=== PATIENT | female | born 1950 | race Caucasian/White ===

== ENCOUNTER → 2019-07-17 09:13 | Outpatient (CLI) | payer MEDICARE, OTHER, SELFPAY ==
--- NOTE | 2019-07-17 09:22 | DI.RAD.S_ITS ---
PROCEDURE: XR LUMBAR SPINE MIN 4V INDICATIONS: Low back pain with right lower extremity symptoms TECHNIQUE: 5 views of the lumbar spine were acquired. COMPARISON: None. FINDINGS: Bones: 5 nonrib-bearing vertebrae are present. There is normal bony alignment. No acute vertebral body compression fractures. No suspicious bony lesions. Moderate multilevel lumbar spondylosis throughout the imaged spine with mid and lower lumbar facet arthropathy. Soft tissues: Overlying bowel gas pattern is normal. No suspicious soft tissue calcifications. Vascular calcifications are present. Oblique images: No pars defects. IMPRESSION: Lumbar spine without acute radiographic abnormalities. Moderate multilevel lumbar spondylosis. Dictated by: Danilo Mckay M.D. on 07/17/2019 at 10:34 Approved by: Danilo Mckay M.D. on 07/17/2019 at 10:35
== END ==
PROVIDERS: PCP Family Medicine; Visit Provider Physical Medicine & Rehabilitation
DX: M47.27 Other spondylosis with radiculopathy, lumbosacral region (principal)
CPT/HCPCS: 72110; 99214

== ENCOUNTER → 2020-09-01 18:50 | Outpatient (ROUT) | payer MEDICARE, OTHER, SELFPAY ==
[2020-09-01 19:22] LABS: Add Manual Diff / Slide Review NO; Basophils Absolute Auto 100 /uL (0-100); Basophils Percent Auto 0.9 % (0-2); Eosinophils Absolute Auto 200 /uL (0-450); Eosinophils Percent Auto 1.8 % (2-4); Hematocrit 42.9 % (36-46); Hemoglobin 14.4 g/dL (12.0-16.0); Lymphocytes Absolute Auto 2800 /uL (1100-4500); Mean Corpuscular HGB Conc 33.6 % (30-36); Mean Corpuscular Hemoglobin 31.9 PG (26-34); Mean Corpuscular Volume 94.8 fL (80-100); Monocytes Absolute Auto 700 /uL (0-900); Neutrophils Absolute Auto 5800 /uL (1500-7000); Neutrophils Percent Auto 61.3 % (50-75); Platelet Count 212 X10^3/uL (150-400); Red Blood Cell Count 4.52 X10^6/uL (4.0-5.2); Red Cell Distribution Width 13.5 % (11.6-14.8); White Blood Cell Count 9.5 X10^3/uL (4.5-11.0)
[2020-09-01 19:33] LABS: Hemoglobin A1C% w Est Avg Glu 5.5 % (4.0-6.0)
[2020-09-01 19:36] LABS: Alanine Aminotransferase 24 IU/L (<35); Albumin 4.3 g/dL (3.5-5.0); Albumin Globulin Ratio 1.4 (1.0-2.8); Alkaline Phosphatase 94 U/L (38-126); Aspartate Aminotransferase 29 IU/L (14-36); BUN Creatinine Ratio 16.7 (6-22); Bilirubin Total 0.7 mg/dL (0.2-1.3); Blood Urea Nitrogen 13 mg/dL (7-17); Calcium 10.5 mg/dL (8.4-10.2); Carbon Dioxide 33 mmol/L (22-32); Chloride 99 mmol/L (98-107); Cholesterol 173 mg/dL (140-199); Estimated Glomerular Filt Rate > 60.0 mL/min (>60); Glucose 88 mg/dL (80-110); HDL Cholesterol 80 mg/dL (40-60); HEMOLYSIS < 15 (0-50); LDL Cholesterol Calculated 69 mg/dL (<100); Potassium 4.3 mmol/L (3.4-5.1); Sodium 135 mmol/L (137-145); Total Protein 7.3 g/dL (6.3-8.2); Triglycerides 122 mg/dL (35-150)
== END ==
PROVIDERS: PCP Internal Medicine; Visit Provider Internal Medicine
DX: R39.9 Unspecified symptoms and signs involving the genitourinary system (principal); K57.92 Diverticulitis of intestine, part unspecified, without perforation or abscess without bleeding; E78.2 Mixed hyperlipidemia; R73.01 Impaired fasting glucose
CPT/HCPCS: 80053; 80061; 83036; 85025; 87077; 87086; 87186

== ENCOUNTER → 2021-09-22 10:00 | Outpatient (CLI) | payer MEDICARE, OTHER, SELFPAY ==
[2021-09-22 11:18] LABS: Blood Urea Nitrogen 15 mg/dL (7-17); Calcium 9.4 mg/dL (8.4-10.2); Carbon Dioxide 29 mmol/L (22-32); Chloride 102 mmol/L (98-107); Estimated Glomerular Filt Rate > 60.0 mL/min (>60); Glucose 92 mg/dL (80-110); HEMOLYSIS < 15 (0-50); Sodium 137 mmol/L (137-145)
== END ==
PROVIDERS: PCP Internal Medicine; Referring Provider Specialist; Visit Provider Specialist
DX: N28.89 Other specified disorders of kidney and ureter (principal); D20.1 Benign neoplasm of soft tissue of peritoneum; D20.0 Benign neoplasm of soft tissue of retroperitoneum
CPT/HCPCS: 36415; 80048; 81002; 99214

== ENCOUNTER → 2021-10-13 10:22 | Outpatient (CLI) | payer MEDICARE, OTHER, SELFPAY ==
[2021-10-13 13:00] LABS: BUN Creatinine Ratio 18.3 (6-22); Blood Urea Nitrogen 15 mg/dL (7-17); Calcium 9.8 mg/dL (8.4-10.2); Carbon Dioxide 29 mmol/L (22-32); Chloride 102 mmol/L (98-107); Estimated Glomerular Filt Rate > 60.0 mL/min (>60); Glucose 94 mg/dL (80-110); HEMOLYSIS < 15 (0-50); Potassium 4.7 mmol/L (3.4-5.1); Sodium 137 mmol/L (137-145)
== END ==
PROVIDERS: PCP Internal Medicine; Referring Provider Specialist; Visit Provider Specialist
DX: Z01.812 Encounter for preprocedural laboratory examination (principal)
CPT/HCPCS: 36415; 80048

== ENCOUNTER → 2021-10-15 08:54 | Outpatient (CLI) | payer MEDICARE, OTHER, SELFPAY ==
--- NOTE | 2021-10-15 08:58 | DI.CT.S_ITS ---
PROCEDURE: CT ABDOMEN PELVIS W CON INDICATIONS: Bening neoplasm of retroperitineum TECHNIQUE: After the administration of oral and IV contrast, axial sections were acquired from the lung bases to the pubic symphysis. Coronal and sagittal reformats were performed. For radiation dose reduction, the following was used: automated exposure control, adjustment of mA and/or kV according to patient size. COMPARISON: [facility], CT, CT ABD W CON, 06/05/2017, 8:12. [facility], CT, ABD/PELVIS W/CON (PNL), 01/31/2012, 8:54. [facility], CT, CT ABD PELVIS W CON, 05/11/2015, 11:21. FINDINGS: Image quality: Excellent. Lung bases: Unremarkable. Heart: No significant findings. ABDOMEN: Liver: A benign low-density cyst is seen in the inferior right hepatic lobe, which measures 1.9 x 1.7 cm in axial dimensions and has mildly increased in size when compared to the prior exam. Gallbladder: Unremarkable. Biliary ducts: Unremarkable. Pancreas: Unremarkable. Spleen: Unremarkable. Adrenal Glands: Unremarkable. Kidneys and Ureters: An exophytic cyst at the inferior pole of the left kidney has mildly increased in size. No solid renal mass is identified. Stomach and Bowel: Multiple diverticula are seen in the colon without signs of acute diverticulitis. Normal appendix. Small bowel is unremarkable. Peritoneum: No abnormal intraperitoneal fluid. No free air. Ventral Wall: No hernia. Abdominal Nodes: Intermediate density right retroperitoneal mass again seen in the retrocaval region extending inferiorly, again seen to be surrounding the right renal artery. The lesion is unchanged in size or extent when compared to multiple prior exams dating back to 01/31/2012. No retroperitoneal or mesenteric adenopathy by size criteria. Vessels: Aorta and inferior vena cava are normal in size. PELVIS: Pelvic Organs: Unremarkable. Bladder: Unremarkable. Pelvic Nodes: No enlarged lymph nodes. Miscellaneous: No inguinal hernias are seen. Bones: Mild degenerative changes are seen in the spine. 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 Dictated by: Chico Figueroa M.D. on 10/15/2021 at 10:14 Approved by: Chico Figueroa M.D. on 10/15/2021 at 10:27
== END ==
PROVIDERS: PCP Student in an Organized Health Care Education/Training Program; Referring Provider Specialist; Visit Provider Specialist
DX: D20.0 Benign neoplasm of soft tissue of retroperitoneum (principal); D20.1 Benign neoplasm of soft tissue of peritoneum; K57.90 Diverticulosis of intestine, part unspecified, without perforation or abscess without bleeding
CPT/HCPCS: 74177

== ENCOUNTER → 2021-12-02 15:15 | Outpatient (CLI) | payer MEDICARE, OTHER, SELFPAY ==
--- NOTE | 2021-12-02 | DI.RAD.S_ITS ---
PROCEDURE: XR LUMBAR SPINE 2-3V INDICATIONS: Radiculopathy, site unspecified, right sided sciata TECHNIQUE: 3 views of the lumbar spine were acquired. COMPARISON: [facility], CR, XR LUMBAR SPINE MIN 4V, 07/17/2019, 9:27. FINDINGS: Bones: There are multilevel degenerative changes with anterior osteophytes at multiple levels and facet arthrosis in the lumbar spine. No vertebral body height loss. Mild disc space narrowing at L1-2 and L2-3 consistent with disc disease. The sacroiliac joints are normal. Soft tissues: Overlying bowel gas pattern is normal. No suspicious soft tissue calcifications. IMPRESSION: Multilevel degenerative changes of the lumbar spine with facet arthrosis and disc disease at L1-2 and L2-3. Dictated by: Sanjay Marroquin M.D. on 12/02/2021 at 16:25 Approved by: Sanjay Marroquin M.D. on 12/02/2021 at 16:27
== END ==
PROVIDERS: PCP Student in an Organized Health Care Education/Training Program; Referring Provider Student in an Organized Health Care Education/Training Program; Visit Provider Student in an Organized Health Care Education/Training Program
DX: M47.26 Other spondylosis with radiculopathy, lumbar region (principal); M51.16 Intervertebral disc disorders with radiculopathy, lumbar region
CPT/HCPCS: 72100

== ENCOUNTER → 2025-03-07 12:22 | Outpatient (CLI) | payer MEDICARE, SELFPAY ==
--- NOTE | 2025-03-07 12:26 | DI.CT.S_ITS ---
PROCEDURE: CT ABDOMEN PELVIS WO CON INDICATIONS: left flank pain, microscopic hematuria TECHNIQUE: After the administration of oral contrast, 5 mm thick sections acquired from the diaphragms to the symphysis. 5 mm coronal and sagittal reformats were performed. For radiation dose reduction, the following was used: automated exposure control, adjustment of mA and/or kV according to patient size. COMPARISON: [facility], CT, CT ABDOMEN PELVIS W CON, 10/15/2021, 9:50. FINDINGS: Image quality: Diagnostic. Lower Chest: No significant findings. ABDOMEN: Liver: Small cysts appear unchanged. Gallbladder: No radiopaque gallstones or wall thickening. Biliary ducts: No biliary dilation. Pancreas: Subtle cyst in the body of the pancreas is similar. Spleen: Size is within normal limits. Adrenal Glands: No adrenal nodules. Kidneys and Ureters: No hydronephrosis. No kidney stones. Small cysts are unchanged. Stomach and Bowel: Diverticulosis. Thickening and inflammatory change at the lower sigmoid colon located in the left pelvis, (2/102). There is a trace amount of free fluid. No extraluminal gas is seen. Normal appendix. No small bowel obstruction. Stomach is not distended. Peritoneum: No ascites. No pneumoperitoneum. Right upper retroperitoneum thickening, (2/34), similar. Ventral Wall: No significant hernia. Abdominal Nodes: No retroperitoneal or mesenteric adenopathy by size criteria. Vessels: Aorta and inferior vena cava are normal in size. Atherosclerotic plaque. PELVIS: Pelvic Organs: Anteverted uterus. Bladder: No stone. Pelvic Nodes: No enlarged lymph nodes. Miscellaneous: No inguinal hernias are seen. Bones: No aggressive osseous abnormality. Sclerotic focus at the right acetabulum, unchanged. IMPRESSION: 1. Sigmoid colon diverticulitis. Trace free fluid in the pelvis. No abscess at this time. 2. No kidney stones. Normal appendix. 3. Right upper retroperitoneal thickening is unchanged. 4. Small pancreatic cyst is similar. Comment: Findings were discussed with Anthony Gordon at time of dictation. Dictated by: Paramjit Lawler M.D. on 03/07/2025 at 17:13 Approved by: Paramjit Lawler M.D. on 03/07/2025 at 17:26
== END ==
PROVIDERS: PCP Student in an Organized Health Care Education/Training Program; Referring Provider Family Medicine; Visit Provider Family Medicine
DX: R10.9 Unspecified abdominal pain (principal); K57.32 Diverticulitis of large intestine without perforation or abscess without bleeding; K86.2 Cyst of pancreas
CPT/HCPCS: 74176